=== PATIENT | female | born 1940 | race American Indian/Alaskan Native ===

== ENCOUNTER 2021-03-25 17:58 | Observation (INO) | payer MEDICARE, OTHER ==
[2021-03-25 18:58] LABS: Mean Corpuscular HGB Conc 34 % (30-34); Platelet Count 171 K/mm3 (140-440); Red Blood Count 1.48 M/mm3 (3.65-5.03)
[2021-03-25 19:02] LABS: Mean Corpuscular Volume 119 fl (79-97)
[2021-03-25 19:05] LABS: BUN/Creatinine Ratio 16; Blood Urea Nitrogen 11 mg/dL (7-17); Calcium 9.3 mg/dL (8.4-10.2); Hemolysis Index 29
[2021-03-25 19:07] LABS: Hematocrit 17.6 % (30.3-42.9); Hemoglobin 5.9 gm/dl (10.1-14.3)
[2021-03-25 19:40] LABS: Total Cells Counted 100
[2021-03-25 19:41] LABS: Anisocytosis 2+; Dimorphic RBC Yes; Hypochromasia Few; Macrocytosis 2+; Schistocytes 2+
[2021-03-26] MEDS ORDERED: SODIUM CHLORIDE 0.9% 500 ML 500 ML IV ONE ×2 (00:31→00:52)
--- NOTE | 2021-03-26 00:58 | Emergency Department Report ---
ED General Adult HPI - General Chief complaint: Medical Clearance Stated complaint: HGB 5.2 Time Seen by Provider: 03/26/21 00:16 Source: patient Mode of arrival: Ambulatory Limitations: No Limitations - History of Present Illness Initial comments: Patient is 80-year-old F Tongan female who had blood work done from her primary care physician was called to come to the emergency department for a low hemoglobin. Patient states she has had some shortness of breath and fatigue lately. States she has some mild left upper quadrant discomfort. As noted darker colored stools. Denies any chest pain cough cold congestion fevers or chills at this time. Severity scale (0 -10): 0 - Related Data Home Medications Medication Instructions Recorded Confirmed Last Taken Aspirin [Aspirin BABY CHEW TAB] 81 mg PO DAILY 11/20/13 11/27/13 11/19/13 Metoprolol [Lopressor TAB] 25 mg PO DAILY 11/20/13 11/27/13 11/27/13 07:00 Simvastatin 20 mg PO QDAY 11/20/13 11/27/13 11/26/13 22:00 Triamterene [Dyrenium] 12.5 mg PO DAILY 11/20/13 11/27/13 11/26/13 07:00 Previous Rx's Medication Instructions Recorded Last Taken Type Hydrocodone Bit/Acetaminophen 1 each PO Q6H PRN #20 tablet 11/27/13 Unknown Rx [Lortab 5-500 Tablet] Allergies Allergy/AdvReac Type Severity Reaction Status Date / Time atorvastatin calcium AdvReac Unknown Verified 11/20/13 17:02 [From Lipitor] codeine AdvReac Vomiting Verified 11/20/13 17:02 Penicillins AdvReac Unknown Verified 11/20/13 17:02 potassium AdvReac Rash Verified 11/20/13 17:02 ED Review of Systems ROS: Stated complaint: HGB 5.2 Other details as noted in HPI Comment: All other systems reviewed and negative ED Past Medical Hx - Past Medical History Hx Hypertension: Yes (2009) Hx GERD: Yes Hx Renal Disease: Yes (RENAL CYST) Hx Arthritis: Yes - Surgical History Hx Coronary Stent: Yes Hx Appendectomy: Yes - Social History Smoking Status: Never Smoker - Medications Home Medications: Home Medications Medication Instructions Recorded Confirmed Last Taken Type Aspirin [Aspirin BABY CHEW TAB] 81 mg PO DAILY 11/20/13 11/27/13 11/19/13 History Metoprolol [Lopressor TAB] 25 mg PO DAILY 11/20/13 11/27/13 11/27/13 07:00 History Simvastatin 20 mg PO QDAY 11/20/13 11/27/13 11/26/13 22:00 History Triamterene [Dyrenium] 12.5 mg PO DAILY 11/20/13 11/27/13 11/26/13 07:00 History Hydrocodone Bit/Acetaminophen 1 each PO Q6H PRN #20 tablet 11/27/13 Unknown Rx [Lortab 5-500 Tablet] ED Physical Exam - General Limitations: No Limitations General appearance: alert, in no apparent distress - Head Head exam: Present: atraumatic, normocephalic - Eye Eye exam: Present: normal appearance - ENT ENT exam: Present: mucous membranes moist - Neck Neck exam: Present: normal inspection - Respiratory Respiratory exam: Present: normal lung sounds bilaterally. Absent: respiratory distress, wheezes, rales, rhonchi - Cardiovascular Cardiovascular Exam: Present: regular rate, normal rhythm, normal heart sounds. Absent: systolic murmur, diastolic murmur, rubs, gallop - GI/Abdominal GI/Abdominal exam: Present: soft, tenderness (Epigastric and left upper quadrant), normal bowel sounds. Absent: distended, guarding - Extremities Exam Extremities exam: Present: normal inspection - Back Exam Back exam: Present: normal inspection - Neurological Exam Neurological exam: Present: alert, oriented X3 - Psychiatric Psychiatric exam: Present: normal affect, normal mood - Skin Skin exam: Present: warm, dry, intact, normal color. Absent: rash ED Course Vital Signs 03/25/21 03/26/21 18:00 00:27 Temperature 99.2 F Pulse Rate 88 75 Respiratory 18 21 Rate Blood Pressure 172/86 [Left] Blood Pressure 163/77 [Right] O2 Sat by Pulse 100 100 Oximetry ED Medical Decision Making - Lab Data Result diagrams: 03/25/21 18:23 03/25/21 18:23 - Medical Decision Making Hemoglobin under 7. Guaiac is negative. to transfuse and admit obs Critical care attestation.: If time is entered above; I have spent that time in minutes in the direct care of this critically ill patient, excluding procedure time. ED Disposition Clinical Impression: Symptomatic anemia Disposition: -09 OP ADMIT IP TO THIS HOSP Is pt being admited?: Yes Does the pt Need Aspirin: No Condition: Stable Time of Disposition: 01:12
[2021-03-26 01:04] LABS: INR 1.19 (0.87-1.13)
[2021-03-26 01:05] LABS: Partial Thromboplastin Time 28.4 Sec. (24.2-36.6)
[2021-03-26] MEDS ORDERED: DEXTROSE 50% IN WATER (25GM) 50 ML SYRINGE IV PRN (01:57)
[2021-03-26] MEDS ORDERED: ONDANSETRON 4 MG/2 ML INJ IV PRN (01:57)
[2021-03-26] MEDS ORDERED: MAGNESIUM HYDROXIDE (MOM) ORAL LIQD UDC PO PRN (01:57)
--- NOTE | 2021-03-26 02:08 | History and Physical Report ---
History of Present Illness Date of examination: 03/26/21 Date of admission: 03/26/21 01:14 Chief complaint: Abnormal Labs History of present illness: 80-year-old -[place] female who presents to the emergency room today for evaluation of low hemoglobin. She had gone to see a primary care physician and had some lab work done and was told to report to the emergency room for further evaluation. Patient states she has been having shortness of breath and generalized fatigue lately. She has also been having some mild left upper quadrant abdominal pain and also having some dark-colored stools. She denies any bright red blood per rectum. No melena, no hematemesis, no hematuria or dysuria. She denies any vaginal bleeding.Patient denies any weight loss. Upon evaluation in the emergency room, stool Hemoccult done in the ER was negative. Hemoglobin was 5.9 and hematocrit 17.6 Patient has been admitted for symptomatic anemia. She is scheduled for blood transfusion. Past History Past Medical History: arthritis, diabetes, GERD, hypertension Past Surgical History: appendectomy, PTCA Social history: denies: no significant social history Family history: no significant family history Medications and Allergies Allergies Allergy/AdvReac Type Severity Reaction Status Date / Time atorvastatin calcium AdvReac Unknown Verified 11/20/13 17:02 [From Lipitor] codeine AdvReac Vomiting Verified 11/20/13 17:02 Penicillins AdvReac Unknown Verified 11/20/13 17:02 potassium AdvReac Rash Verified 11/20/13 17:02 Home Medications Medication Instructions Recorded Confirmed Last Taken Type Aspirin [Aspirin BABY CHEW TAB] 81 mg PO DAILY 11/20/13 11/27/13 11/19/13 History Metoprolol [Lopressor TAB] 25 mg PO DAILY 11/20/13 11/27/13 11/27/13 07:00 History Simvastatin 20 mg PO QDAY 11/20/13 11/27/13 11/26/13 22:00 History Triamterene [Dyrenium] 12.5 mg PO DAILY 11/20/13 11/27/13 11/26/13 07:00 History Hydrocodone Bit/Acetaminophen 1 each PO Q6H PRN #20 tablet 11/27/13 Unknown Rx [Lortab 5-500 Tablet] Active Meds: Active Medications Acetaminophen (Acetaminophen 325 Mg Tab) 650 mg PO Q4H PRN PRN Reason: Pain MILD(1-3)/Fever >100.5/HARRIS Ondansetron HCl (Ondansetron 4 Mg/2 Ml Inj) 4 mg IV Q8H PRN PRN Reason: Nausea And Vomiting Sodium Chloride (Sodium Chloride 0.9% 10 Ml Flush Syringe) 10 ml IV BID ASHISH Review of Systems Constitutional: no weight loss, no fever, no chills Ears, nose, mouth and throat: no nasal congestion, no sore throat Cardiovascular: no chest pain, no palpitations Respiratory: no cough, no shortness of breath Gastrointestinal: no abdominal pain, no nausea, no vomiting, no diarrhea Genitourinary Female: no pelvic pain, no flank pain, no dysuria, no hematuria, no abnormal vaginal bleeding Musculoskeletal: no neck pain, no low back pain Integumentary: no rash, no pruritis Neurological: no headaches, no confusion Psychiatric: no anxiety, no depression Endocrine: no polyphagia, no polydipsia, no polyuria Exam - Constitutional Vitals: Temp Pulse Resp BP Pulse Ox 99.2 F 75 21 172/86 100 03/25/21 18:00 03/26/21 00:27 03/26/21 00:27 03/26/21 00:27 03/26/21 00:27 General appearance: Present: no acute distress, well-nourished - EENT Eyes: Present: PERRL, EOM intact. Absent: scleral icterus ENT: hearing intact, clear oral mucosa, dentition normal - Neck Neck: Present: supple, normal ROM - Respiratory Respiratory effort: normal Respiratory: bilateral: CTA - Cardiovascular Rhythm: regular Heart Sounds: Present: S1 & S2. Absent: gallop, systolic murmur, diastolic murmur, rub, click - Extremities Extremities: no ischemia, pulses intact, pulses symmetrical, No edema, normal temperature, normal color, Full ROM Peripheral Pulses: within normal limits - Abdominal General gastrointestinal: Present: soft, non-tender, non-distended, normal bowel sounds. Absent: mass - Integumentary Integumentary: Present: clear, warm, dry. Absent: rash - Musculoskeletal Musculoskeletal: strength equal bilaterally - Psychiatric Psychiatric: appropriate mood/affect, intact judgment & insight, memory intact, cooperative - Neurologic Neurologic: CNII-XII intact, moves all extremities Results - Labs CBC & Chem 7: 03/25/21 18:23 03/25/21 18:23 Labs: Abnormal lab results 03/25/21 03/25/21 03/25/21 Range/Units 18:23 18:23 18:23 WBC 3.6 L (4.5-11.0) K/mm3 RBC 1.48 L (3.65-5.03) M/mm3 Hgb 5.9 L* (10.1-14.3) gm/dl Hct 17.6 L* (30.3-42.9) % MCV 119 H (79-97) fl MCH 40 H (28-32) pg RDW 39.0 H (13.2-15.2) % Lymphocytes % (Manual) 44.0 H (13.4-35.0) % INR 1.19 H (0.87-1.13) Carbon Dioxide 20 L (22-30) mmol/L Crossmatch 03/26/21 Range/Units 01:00 WBC (4.5-11.0) K/mm3 RBC (3.65-5.03) M/mm3 Hgb (10.1-14.3) gm/dl Hct (30.3-42.9) % MCV (79-97) fl MCH (28-32) pg RDW (13.2-15.2) % Lymphocytes % (Manual) (13.4-35.0) % INR (0.87-1.13) Carbon Dioxide (22-30) mmol/L Crossmatch See Detail Assessment and Plan - Patient Problems (1) Symptomatic anemia Current Visit: Yes Status: Acute Plan to address problem: Etiology is unclear. Patient scheduled for blood transfusion. Will monitor CBC. (2) DVT prophylaxis Current Visit: Yes Status: Acute Plan to address problem: Patient placed on sequential compression device. (3) Full code status Current Visit: Yes Status: Acute Plan to address problem: Patient is full code.
[2021-03-26] MEDS ORDERED: INSULIN LISPRO 100 UNIT/ML SUB-Q SCH (07:30)
[2021-03-26] MEDS ORDERED: SODIUM CHLORIDE 0.9% 500 ML 500 ML IV SCH (09:30)
--- NOTE | 2021-03-26 13:17 | Event Note ---
Date: 03/26/21 Patient seen and examined, patient without any confusion, states that she does feel weak when she walks. Spoke with the nurse, patient only received 1 unit of blood, another unit of blood is pending. After the second unit, CBC will be carried out in the afternoon. Stool studies are pending for lower GI bleed even though the patient denies such. Agree with assessment and plan as outlined by admitting physician.
[2021-03-26] MEDS ORDERED: SODIUM CHLORIDE 0.9% 1000 ML 1,000 ML ONE (15:25)
[2021-03-26] MEDS: ACETAMINOPHEN 325 MG TAB PO PRN (17:12)
[2021-03-27 05:08] LABS: Hematocrit 20.9 % (30.3-42.9); Hemoglobin 7.1 gm/dl (10.1-14.3); Mean Corpuscular HGB Conc 34 % (30-34); Mean Corpuscular Volume 105 fl (79-97); Platelet Count 145 K/mm3 (140-440); Red Blood Count 1.99 M/mm3 (3.65-5.03)
[2021-03-27 05:14] LABS: Red Cell Distribution Width 39.8 % (13.2-15.2)
[2021-03-27 05:19] LABS: INR 1.16 (0.87-1.13)
[2021-03-27 05:25] LABS: Blood Urea Nitrogen 10 mg/dL (7-17); Calcium 8.8 mg/dL (8.4-10.2); Hemolysis Index 3
[2021-03-27 05:31] LABS: BUN/Creatinine Ratio 20
[2021-03-27 08:30] LABS: Total Cells Counted 100
[2021-03-27 08:32] LABS: Anisocytosis 3+
[2021-03-27 08:34] LABS: Platelet Estimate Consistent w Auto; Schistocytes 1+
--- NOTE | 2021-03-27 09:13 | Progress Note ---
Assessment and Plan Assessment and plan: 80-year-old -[place] female who presents with severe anemia Severe macrocytic anemia Etiology unknown Blood transfusion x2 Hemoglobin stabilized to 7.1 Hematology consulted Stool occult pending Iron studies, LDH, folate, B12 pending Hold aspirin Hypertension Metoprolol CODE STATUS: Full DVT prophylaxis: SCDs Disposition: Continue to monitor patient's hemoglobin, awaiting recommendations from hematology History Interval history: 03/27/2021: Patient doing well, talking on the phone with her daughter, updated daughter as to the patient's condition. Patient does not complain of any pain. Patient has not had a bowel movement at this time. No confusion. Hospitalist Physical - Physical exam Narrative exam: General appearance: no acute distress, well-nourished EENT: PERRL, EOM intact, hearing intact, clear oral mucosa, dentition normal Neck: Present: supple, normal ROM Respiratory: bilateral: CTA, negative: rales, rhonchi, wheezing Cardiovascular: Regular rate/rhythm, Normal S1 & S2. No gallop, rub Extremities: no ischemia, No edema, normal temperature, normal color, Full ROM Abdominal: soft, non-tender, non-distended, normal bowel sounds Integumentary: Present: clear, warm, dry Psychiatric: appropriate mood/affect, intact judgment & insight Neurologic: CNII-XII intact, moves all extremities - Constitutional Vitals: Temp Pulse Resp BP Pulse Ox 98.5 F 66 20 137/59 100 03/27/21 04:14 03/27/21 04:14 03/27/21 04:14 03/27/21 04:14 03/27/21 04:14 General appearance: Present: no acute distress, well-nourished Results - Labs CBC & Chem 7: 03/27/21 04:07 03/27/21 04:07 Labs: Laboratory Last Values WBC 2.6 K/mm3 (4.5-11.0) L 03/27/21 04:07 RBC 1.99 M/mm3 (3.65-5.03) L 03/27/21 04:07 Hgb 7.1 gm/dl (10.1-14.3) L 03/27/21 04:07 Hct 20.9 % (30.3-42.9) L 03/27/21 04:07 MCV 105 fl (79-97) H 03/27/21 04:07 MCH 36 pg (28-32) H 03/27/21 04:07 MCHC 34 % (30-34) 03/27/21 04:07 RDW 39.8 % (13.2-15.2) H 03/27/21 04:07 Plt Count 145 K/mm3 (140-440) 03/27/21 04:07 Add Manual Diff Complete 03/27/21 04:07 Total Counted 100 03/27/21 04:07 Seg Neuts % (Manual) 52.0 % (40.0-70.0) 03/27/21 04:07 Lymphocytes % (Manual) 48.0 % (13.4-35.0) H 03/27/21 04:07 Monocytes % (Manual) 3.0 % (0.0-7.3) 03/25/21 18:23 Eosinophils % (Manual) 1.0 % (0.0-4.3) 03/25/21 18:23 Nucleated RBC % Not Reportable 03/27/21 04:07 Seg Neutrophils # Man 1.4 K/mm3 (1.8-7.7) L 03/27/21 04:07 Band Neutrophils # 0.0 K/mm3 03/27/21 04:07 Lymphocytes # (Manual) 1.2 K/mm3 (1.2-5.4) 03/27/21 04:07 Abs React Lymphs (Man) 0.0 K/mm3 03/27/21 04:07 Monocytes # (Manual) 0.0 K/mm3 (0.0-0.8) 03/27/21 04:07 Eosinophils # (Manual) 0.0 K/mm3 (0.0-0.4) 03/27/21 04:07 Basophils # (Manual) 0.0 K/mm3 (0.0-0.1) 03/27/21 04:07 Metamyelocytes # 0.0 K/mm3 03/27/21 04:07 Myelocytes # 0.0 K/mm3 03/27/21 04:07 Promyelocytes # 0.0 K/mm3 03/27/21 04:07 Blast Cells # 0.0 K/mm3 03/27/21 04:07 WBC Morphology Not Reportable 03/27/21 04:07 Hypersegmented Neuts Not Reportable 03/27/21 04:07 Hyposegmented Neuts Not Reportable 03/27/21 04:07 Hypogranular Neuts Not Reportable 03/27/21 04:07 Smudge Cells Not Reportable 03/27/21 04:07 Toxic Granulation Not Reportable 03/27/21 04:07 Toxic Vacuolation Not Reportable 03/27/21 04:07 Dohle Bodies Not Reportable 03/27/21 04:07 Pelger-Huet Anomaly Not Reportable 03/27/21 04:07 Matthew Rods Not Reportable 03/27/21 04:07 Platelet Estimate Consistent w auto 03/27/21 04:07 Clumped Platelets Not Reportable 03/27/21 04:07 Plt Clumps, EDTA Not Reportable 03/27/21 04:07 Large Platelets Not Reportable 03/27/21 04:07 Giant Platelets Not Reportable 03/27/21 04:07 Platelet Satelliting Not Reportable 03/27/21 04:07 Plt Morphology Comment Not Reportable 03/27/21 04:07 RBC Morphology Not Reportable 03/27/21 04:07 Dimorphic RBCs Not Reportable 03/27/21 04:07 Polychromasia Not Reportable 03/27/21 04:07 Hypochromasia Not Reportable 03/27/21 04:07 Poikilocytosis Not Reportable 03/27/21 04:07 Anisocytosis 3+ 03/27/21 04:07 Microcytosis Not Reportable 03/27/21 04:07 Macrocytosis Not Reportable 03/27/21 04:07 Spherocytes Not Reportable 03/27/21 04:07 Pappenheimer Bodies Not Reportable 03/27/21 04:07 Sickle Cells Not Reportable 03/27/21 04:07 Target Cells Not Reportable 03/27/21 04:07 Tear Drop Cells Not Reportable 03/27/21 04:07 Ovalocytes Not Reportable 03/27/21 04:07 Helmet Cells Not Reportable 03/27/21 04:07 Marroquin-Ravensworth Bodies Not Reportable 03/27/21 04:07 [place] Rings Not Reportable 03/27/21 04:07 Joseph Cells Not Reportable 03/27/21 04:07 Bite Cells Not Reportable 03/27/21 04:07 Crenated Cell Not Reportable 03/27/21 04:07 Elliptocytes Not Reportable 03/27/21 04:07 Acanthocytes (Spur) Not Reportable 03/27/21 04:07 Rouleaux Not Reportable 03/27/21 04:07 Hemoglobin C Crystals Not Reportable 03/27/21 04:07 Schistocytes 1+ 03/27/21 04:07 Malaria parasites Not Reportable 03/27/21 04:07 You Bodies Not Reportable 03/27/21 04:07 Hem Pathologist Commnt No 03/27/21 04:07 PT 14.6 Sec. (12.2-14.9) 03/27/21 04:07 INR 1.16 (0.87-1.13) H 03/27/21 04:07 APTT 28.4 Sec. (24.2-36.6) 03/25/21 18:23 Sodium 140 mmol/L (137-145) 03/27/21 04:07 Potassium 3.8 mmol/L (3.6-5.0) 03/27/21 04:07 Chloride 107.2 mmol/L (98-107) H 03/27/21 04:07 Carbon Dioxide 22 mmol/L (22-30) 03/27/21 04:07 Anion Gap 15 mmol/L 03/27/21 04:07 BUN 10 mg/dL (7-17) 03/27/21 04:07 Creatinine 0.5 mg/dL (0.6-1.2) L 03/27/21 04:07 Estimated GFR > 60 ml/min 03/27/21 04:07 BUN/Creatinine Ratio 20 % 03/27/21 04:07 Glucose 79 mg/dL (65-100) 03/27/21 04:07 Calcium 8.8 mg/dL (8.4-10.2) 03/27/21 04:07 Blood Type O POSITIVE 03/25/21 18:23 Antibody Screen Negative 03/25/21 18:23 Crossmatch See Detail 03/26/21 01:00 Ferguson/IV: Voiding Method Toilet Active Medications - Current Medications Current Medications: Generic Name Dose Route Start Last Admin Trade Name Freq PRN Reason Stop Dose Admin Acetaminophen 650 mg 03/26/21 01:57 03/26/21 17:12 Acetaminophen 325 Mg Tab PO 650 mg Q4H PRN Administration Pain MILD(1-3)/Fever >100.5/HARRIS Magnesium Hydroxide 30 ml 03/26/21 01:57 Magnesium Hydroxide (Mom) Oral Liqd Udc PO Q4H PRN Constipation Ondansetron HCl 4 mg 03/26/21 01:57 Ondansetron 4 Mg/2 Ml Inj IV Q8H PRN Nausea And Vomiting Sodium Chloride 10 ml 03/26/21 10:00 03/26/21 22:22 Sodium Chloride 0.9% 10 Ml Flush Syringe IV 10 ml BID ASHISH Administration Sodium Chloride 10 ml 03/26/21 01:57 Sodium Chloride 0.9% 10 Ml Flush Syringe IV PRN PRN LINE FLUSH Nutrition/Malnutrition Assess - Dietary Evaluation Nutrition/Malnutrition Findings: Nutrition Notes Start: 03/26/21 11:00 Freq: Status: Active Protocol: Document 03/26/21 11:00 (Rec: 03/26/21 11:07 [email or web address]) Nutrition Notes 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 No Phillip score or wounds noted. Pt reports not eating well for 2 weeks. Pt did not eat breakfast due to not liking the food choices. Pt has no food prefrences. Burn Absent Trauma Absent GI Symptoms None Current % PO Negligible Minimum of two criteria Yes Energy Intake (severe) < or equal to 50% Estimated Energy Requirement > or equal to 5 days Interpretation of Weight Loss (severe) >5% in 1 month #1 Nutrition Diagnosis Malnutrition Etiology fatigue As Evidenced by Signs and Symptoms <50% of EER in >5 days, 12% wt loss in 2 weeks Is patient on ventilator? No Is Patient Ambulatory and/or Out of Bed No REE-([facility]-confined to bed) 0152.453 Calculation Used for Recommendations [facility] Additional Notes Protein: 96-120g (1.2-1.5g/kg) Fluid: 1 ml/kcal Nutrition Intervention Change Diet Order: Continue Add Supplement/Snack (indicate name/kcal Glucerna TID /protein ) Provides kCal: 660 Provides Protein (gm) 30 Goal #1 Meet at least 75% of protein and energy needs via PO and ONS intakes Anticipated Discharge Needs: Cardiac, Consistent CHO Follow-Up By: 03/29/21 Additional Comments FU for intakes and ONS tolerance
[2021-03-27 09:41] LABS: Iron 175 ug/dL (37-170); Total Iron Binding Capacity 178 mcg/dL (250-450)
--- NOTE | 2021-03-27 10:21 | Hem/Onc Consultation ---
History of Present Illness - History of Present Illness heme/onc prelim data review 80yo AA woman with recent fatigue, found ot have severe anemia- Hgb 6 sent to ER from primary care found to have pancytopenia and "borderline" Vit B12 defic, very high LDH since admission, received RBC transfusions PMH: CAD per notes, s/p PTCA DM per notes DATA REVIEWED BELOW Vit B12 150 LDH 4000 IMP: pancytopenia with evidence of hemolytic anemia Vit B12 defic could be the whole problem, but r/o heme malignancy REC: C/A/P CT RBC transfusions for severe anemia Vit B12 treatments, folic acid supplement labs to include homocysteine, Ronan anticipate outpt televisit hematology f/u Home Medications Medication Instructions Recorded Confirmed Last Taken Aspirin [Aspirin BABY CHEW TAB] 81 mg PO DAILY 11/20/13 11/27/13 11/19/13 Metoprolol [Lopressor TAB] 25 mg PO DAILY 11/20/13 11/27/13 11/27/13 07:00 Simvastatin 20 mg PO QDAY 11/20/13 11/27/13 11/26/13 22:00 Triamterene [Dyrenium] 12.5 mg PO DAILY 11/20/13 11/27/13 11/26/13 07:00 Previous Rx's Medication Instructions Recorded Last Taken Type Hydrocodone Bit/Acetaminophen 1 each PO Q6H PRN #20 tablet 11/27/13 Unknown Rx [Lortab 5-500 Tablet] Active Medications Acetaminophen (Acetaminophen 325 Mg Tab) 650 mg PO Q4H PRN PRN Reason: Pain MILD(1-3)/Fever >100.5/HARRIS Last Admin: 03/26/21 17:12 Dose: 650 mg Documented by: Magnesium Hydroxide (Magnesium Hydroxide (Mom) Oral Liqd Udc) 30 ml PO Q4H PRN PRN Reason: Constipation Metoprolol Tartrate (Metoprolol Tartrate 25 Mg Tab) 25 mg PO DAILY ASHISH Ondansetron HCl (Ondansetron 4 Mg/2 Ml Inj) 4 mg IV Q8H PRN PRN Reason: Nausea And Vomiting Sodium Chloride (Sodium Chloride 0.9% 10 Ml Flush Syringe) 10 ml IV BID ASHISH Last Admin: 03/26/21 22:22 Dose: 10 ml Documented by: Sodium Chloride (Sodium Chloride 0.9% 10 Ml Flush Syringe) 10 ml IV PRN PRN PRN Reason: LINE FLUSH Laboratory Last Values WBC 2.6 K/mm3 (4.5-11.0) L 03/27/21 04:07 Hgb 7.1 gm/dl (10.1-14.3) L 03/27/21 04:07 Hct 20.9 % (30.3-42.9) L 03/27/21 04:07 MCV 105 fl (79-97) H 03/27/21 04:07 Plt Count 145 K/mm3 (140-440) 03/27/21 04:07 Seg Neuts % (Manual) 52.0 % (40.0-70.0) 03/27/21 04:07 Lymphocytes % (Manual) 48.0 % (13.4-35.0) H 03/27/21 04:07 Schistocytes 1+ 03/27/21 04:07 PT 14.6 Sec. (12.2-14.9) 03/27/21 04:07 INR 1.16 (0.87-1.13) H 03/27/21 04:07 APTT 28.4 Sec. (24.2-36.6) 03/25/21 18:23 Creatinine 0.5 mg/dL (0.6-1.2) L 03/27/21 04:07 Vitamin B12 150.0 pg/mL (211-911) L 03/27/21 04:07 Folate 14.85 ng/mL (7.3-26.0) 03/27/21 04:07 Blood Type O POSITIVE 03/25/21 18:23 Antibody Screen Negative 03/25/21 18:23 Crossmatch See Detail 03/26/21 01:00 Abnormal Labs 03/25/21 03/25/21 03/25/21 18:23 18:23 18:23 WBC 3.6 L RBC 1.48 L Hgb 5.9 L* Hct 17.6 L* MCV 119 H MCH 40 H RDW 39.0 H Lymphocytes % (Manual) 44.0 H Seg Neutrophils # Man INR 1.19 H Chloride Carbon Dioxide 20 L Creatinine Iron TIBC Lactate Dehydrogenase Vitamin B12 Crossmatch 03/26/21 03/27/21 03/27/21 01:00 04:07 04:07 WBC 2.6 L RBC 1.99 L Hgb 7.1 L Hct 20.9 L MCV 105 H MCH 36 H RDW 39.8 H Lymphocytes % (Manual) 48.0 H Seg Neutrophils # Man 1.4 L INR 1.16 H Chloride Carbon Dioxide Creatinine Iron TIBC Lactate Dehydrogenase Vitamin B12 Crossmatch See Detail 03/27/21 03/27/21 03/27/21 04:07 04:07 04:07 WBC RBC Hgb Hct MCV MCH RDW Lymphocytes % (Manual) Seg Neutrophils # Man INR Chloride 107.2 H Carbon Dioxide Creatinine 0.5 L Iron 175 H TIBC 178 L Lactate Dehydrogenase 4617 H Vitamin B12 150.0 L Crossmatch Past History Past Medical History: arthritis, diabetes, GERD, hypertension Past Surgical History: appendectomy, PTCA Social history: denies: no significant social history Family history: no significant family history Medications and Allergies Allergies Allergy/AdvReac Type Severity Reaction Status Date / Time atorvastatin calcium AdvReac Unknown Verified 11/20/13 17:02 [From Lipitor] codeine AdvReac Vomiting Verified 11/20/13 17:02 Penicillins AdvReac Unknown Verified 11/20/13 17:02 potassium AdvReac Rash Verified 11/20/13 17:02 Home Medications Medication Instructions Recorded Confirmed Last Taken Type Aspirin [Aspirin BABY CHEW TAB] 81 mg PO DAILY 11/20/13 11/27/13 11/19/13 History Metoprolol [Lopressor TAB] 25 mg PO DAILY 11/20/13 11/27/13 11/27/13 07:00 History Simvastatin 20 mg PO QDAY 11/20/13 11/27/13 11/26/13 22:00 History Triamterene [Dyrenium] 12.5 mg PO DAILY 11/20/13 11/27/13 11/26/13 07:00 History Hydrocodone Bit/Acetaminophen 1 each PO Q6H PRN #20 tablet 11/27/13 Unknown Rx [Lortab 5-500 Tablet] Active Meds: Active Medications Acetaminophen (Acetaminophen 325 Mg Tab) 650 mg PO Q4H PRN PRN Reason: Pain MILD(1-3)/Fever >100.5/HARRIS Last Admin: 03/26/21 17:12 Dose: 650 mg Documented by: Magnesium Hydroxide (Magnesium Hydroxide (Mom) Oral Liqd Udc) 30 ml PO Q4H PRN PRN Reason: Constipation Metoprolol Tartrate (Metoprolol Tartrate 25 Mg Tab) 25 mg PO DAILY [facility] Ondansetron HCl (Ondansetron 4 Mg/2 Ml Inj) 4 mg IV Q8H PRN PRN Reason: Nausea And Vomiting Sodium Chloride (Sodium Chloride 0.9% 10 Ml Flush Syringe) 10 ml IV BID [facility] Last Admin: 03/26/21 22:22 Dose: 10 ml Documented by: Sodium Chloride (Sodium Chloride 0.9% 10 Ml Flush Syringe) 10 ml IV PRN PRN PRN Reason: LINE FLUSH Exam - Constitutional Vitals: Last Vital Signs Temp 98.5 F 03/27/21 04:14 Pulse 66 03/27/21 04:14 Resp 20 03/27/21 04:14 BP 137/59 03/27/21 04:14 Pulse Ox 100 03/27/21 04:14 Results - Labs lab Results: Laboratory Results - last 24 hr 03/26/21 03/27/21 03/27/21 01:00 04:07 04:07 WBC 2.6 L RBC 1.99 L Hgb 7.1 L Hct 20.9 L MCV 105 H MCH 36 H MCHC 34 RDW 39.8 H Plt Count 145 Add Manual Diff Complete Total Counted 100 Seg Neuts % (Manual) 52.0 Lymphocytes % (Manual) 48.0 H Nucleated RBC % Not Reportable Seg Neutrophils # Man 1.4 L Band Neutrophils # 0.0 Lymphocytes # (Manual) 1.2 Abs React Lymphs (Man) 0.0 Monocytes # (Manual) 0.0 Eosinophils # (Manual) 0.0 Basophils # (Manual) 0.0 Metamyelocytes # 0.0 Myelocytes # 0.0 Promyelocytes # 0.0 Blast Cells # 0.0 WBC Morphology Not Reportable Hypersegmented Neuts Not Reportable Hyposegmented Neuts Not Reportable Hypogranular Neuts Not Reportable Smudge Cells Not Reportable Toxic Granulation Not Reportable Toxic Vacuolation Not Reportable Dohle Bodies Not Reportable Pelger-Huet Anomaly Not Reportable Matthew Rods Not Reportable Platelet Estimate Consistent w auto Clumped Platelets Not Reportable Plt Clumps, EDTA Not Reportable Large Platelets Not Reportable Giant Platelets Not Reportable Platelet Satelliting Not Reportable Plt Morphology Comment Not Reportable RBC Morphology Not Reportable Dimorphic RBCs Not Reportable Polychromasia Not Reportable Hypochromasia Not Reportable Poikilocytosis Not Reportable Anisocytosis 3+ Microcytosis Not Reportable Macrocytosis Not Reportable Spherocytes Not Reportable Pappenheimer Bodies Not Reportable Sickle Cells Not Reportable Target Cells Not Reportable Tear Drop Cells Not Reportable Ovalocytes Not Reportable Helmet Cells Not Reportable Marroquin-Tri[place] Bodies Not Reportable [place] Rings Not Reportable Joseph Cells Not Reportable Bite Cells Not Reportable Crenated Cell Not Reportable Elliptocytes Not Reportable Acanthocytes (Spur) Not Reportable Rouleaux Not Reportable Hemoglobin C Crystals Not Reportable Schistocytes 1+ Malaria parasites Not Reportable You Bodies Not Reportable Hem Pathologist Commnt No PT 14.6 INR 1.16 H Sodium Potassium Chloride Carbon Dioxide Anion Gap BUN Creatinine Estimated GFR BUN/Creatinine Ratio Glucose Calcium Iron TIBC Lactate Dehydrogenase Vitamin B12 Folate Crossmatch See Detail 03/27/21 03/27/21 03/27/21 04:07 04:07 04:07 WBC RBC Hgb Hct MCV MCH MCHC RDW Plt Count Add Manual Diff Total Counted Seg Neuts % (Manual) Lymphocytes % (Manual) Nucleated RBC % Seg Neutrophils # Man Band Neutrophils # Lymphocytes # (Manual) Abs React Lymphs (Man) Monocytes # (Manual) Eosinophils # (Manual) Basophils # (Manual) Metamyelocytes # Myelocytes # Promyelocytes # Blast Cells # WBC Morphology Hypersegmented Neuts Hyposegmented Neuts Hypogranular Neuts Smudge Cells Toxic Granulation Toxic Vacuolation Dohle Bodies Pelger-Huet Anomaly Matthew Rods Platelet Estimate Clumped Platelets Plt Clumps, EDTA Large Platelets Giant Platelets Platelet Satelliting Plt Morphology Comment RBC Morphology Dimorphic RBCs Polychromasia Hypochromasia Poikilocytosis Anisocytosis Microcytosis Macrocytosis Spherocytes Pappenheimer Bodies Sickle Cells Target Cells Tear Drop Cells Ovalocytes Helmet Cells Marroquin-Tri[place] Bodies [place] Rings [place] Cells Bite Cells Crenated Cell Elliptocytes Acanthocytes (Spur) Rouleaux Hemoglobin C Crystals Schistocytes Malaria parasites You Bodies Hem Pathologist Commnt PT INR Sodium 140 Potassium 3.8 Chloride 107.2 H Carbon Dioxide 22 Anion Gap 15 BUN 10 Creatinine 0.5 L Estimated GFR > 60 BUN/Creatinine Ratio 20 Glucose 79 Calcium 8.8 Iron 175 H TIBC 178 L Lactate Dehydrogenase 4617 H Vitamin B12 150.0 L Folate Crossmatch 05/09/21 04:07 WBC RBC Hgb Hct MCV MCH MCHC RDW Plt Count Add Manual Diff Total Counted Seg Neuts % (Manual) Lymphocytes % (Manual) Nucleated RBC % Seg Neutrophils # Man Band Neutrophils # Lymphocytes # (Manual) Abs React Lymphs (Man) Monocytes # (Manual) Eosinophils # (Manual) Basophils # (Manual) Metamyelocytes # Myelocytes # Promyelocytes # Blast Cells # WBC Morphology Hypersegmented Neuts Hyposegmented Neuts Hypogranular Neuts Smudge Cells Toxic Granulation Toxic Vacuolation Dohle Bodies Pelger-Huet Anomaly Matthew Rods Platelet Estimate Clumped Platelets Plt Clumps, EDTA Large Platelets Giant Platelets Platelet Satelliting Plt Morphology Comment RBC Morphology Dimorphic RBCs Polychromasia Hypochromasia Poikilocytosis Anisocytosis Microcytosis Macrocytosis Spherocytes Pappenheimer Bodies Sickle Cells Target Cells Tear Drop Cells Ovalocytes Helmet Cells Marroquin-[place] Bodies [place] Rings [place] Cells Bite Cells Crenated Cell Elliptocytes Acanthocytes (Spur) Rouleaux Hemoglobin C Crystals Schistocytes Malaria parasites You Bodies Hem Pathologist Commnt PT INR Sodium Potassium Chloride Carbon Dioxide Anion Gap BUN Creatinine Estimated GFR BUN/Creatinine Ratio Glucose Calcium Iron TIBC Lactate Dehydrogenase Vitamin B12 Folate 14.85 Crossmatch
[2021-03-27] MEDS ORDERED: ACETAMINOPHEN 325 MG TAB PO PRN (10:39)
[2021-03-27] MEDS ORDERED: SODIUM CHLORIDE 0.9% 500 ML 500 ML IV ONE ×3 (11:00→16:00)
[2021-03-27] MEDS: FOLIC ACID 1 MG TAB PO SCH (16:02)
[2021-03-27] MEDS: METOPROLOL TARTRATE 25 MG TAB PO SCH (16:03)
[2021-03-27] MEDS: diphenhydrAMINE 50 MG/ML VIAL IV PRN ×2 (16:05→20:02)
[2021-03-27] MEDS: CYANOCOBALAMIN (VIT B-12) 1000 MCG/1 ML INJ SUB-Q SCH (16:21)
[2021-03-27 18:27] LABS: Hemoglobin 7.8 gm/dl (10.1-14.3); Mean Corpuscular HGB Conc 34 % (30-34); Mean Corpuscular Volume 107 fl (79-97); Platelet Count 154 K/mm3 (140-440); Red Blood Count 2.16 M/mm3 (3.65-5.03)
--- NOTE | 2021-03-27 18:31 | Cat Scan Report ---
CT CHEST, ABDOMEN AND PELVIS WITH CONTRAST HISTORY: Pancytopenia COMPARISON: None TECHNIQUE: Routine chest, abdominal and pelvic CT exam performed following intravenous contrast admi nistration.. All CT scans at this location are performed using CT dose reduction for ALARA by means o f automated exposure control. FINDINGS: CT CHEST: Lungs: There is a 1.7 cm pleural-based nodule in the mid right lung base along the right hemidiaphrag m. The lungs are otherwise clear. Trachea and Bronchi: No significant abnormality. Heart and Pericardium: Moderately extensive coronary artherosclerotic calcifications Vasculature: Atherosclerotic but not aneurysmal thoracic aorta. Lymphatics: No lymphadenopathy. CT ABDOMEN: Liver: There are multiple simple cysts in the liver without acute abnormality. Biliary: Gallbladder is surgically absent. Spleen: No significant abnormality. Unenlarged. Pancreas: No significant abnormality. Adrenals: No significant abnormality. Kidneys: No acute findings. Multiple simple cysts in the left kidney. Lymphatics: No lymphadenopathy. Vasculature: No significant abnormality. Bowel/Peritoneum: No acute findings. Umbilical hernia containing nondistended loops of small bowel. N o obstruction or free air. Sigmoid diverticulosis without diverticulitis. CT PELVIC: : No significant abnormality. Lymphatics: No lymphadenopathy. Osseous Structures: No aggressive appearing osseous lesions. Additional Findings: None IMPRESSION: 1. There is a 1.7 cm pleural-based nodule in the right lower lobe. This is well marginated and appear s likely benign. However, it would be difficult to rule out underlying malignancy. Comparison with an y available prior imaging is recommended to evaluate for stability. 2. No additional concerning abnormality in the abdomen and pelvis. 3. Multiple incidental findings as detailed above. Signer Name: Shawn Arnold MD Signed: 03/27/2021 6:26 PM Workstation Name: [id number]
[2021-03-27 18:32] LABS: Red Cell Distribution Width 39.5 % (13.2-15.2)
[2021-03-27] MEDS: ACETAMINOPHEN 325 MG TAB PO PRN (20:01)
[2021-03-27] MEDS: amLODIPine 5 MG TAB PO SCH (20:02)
[2021-03-28 05:29] LABS: Hematocrit 24.3 % (30.3-42.9); Hemoglobin 8.1 gm/dl (10.1-14.3); Mean Corpuscular HGB Conc 33 % (30-34); Mean Corpuscular Volume 104 fl (79-97); Platelet Count 144 K/mm3 (140-440); Red Blood Count 2.35 M/mm3 (3.65-5.03)
[2021-03-28 05:30] LABS: Red Cell Distribution Width 35.7 % (13.2-15.2)
[2021-03-28 05:46] LABS: INR 1.06 (0.87-1.13); Partial Thromboplastin Time 30.8 Sec. (24.2-36.6)
[2021-03-28 05:47] LABS: Blood Urea Nitrogen 11 mg/dL (7-17); Calcium 8.5 mg/dL (8.4-10.2); Hemolysis Index 0
[2021-03-28 05:49] LABS: BUN/Creatinine Ratio 18
[2021-03-28] MEDS ORDERED: POLYETHYLENE GLYCOL 3350 17 GM POWDER PO SCH (10:00)
[2021-03-28] MEDS: METOPROLOL TARTRATE 25 MG TAB PO SCH (11:12)
[2021-03-28] MEDS: amLODIPine 5 MG TAB PO SCH (11:12)
[2021-03-28] MEDS: FOLIC ACID 1 MG TAB PO SCH (11:14)
[2021-03-28] MEDS: CYANOCOBALAMIN (VIT B-12) 1000 MCG/1 ML INJ SUB-Q SCH (11:14)
[2021-03-28 11:23] VITALS: BP 136/68
--- NOTE | 2021-03-28 12:19 | Discharge Summary ---
Providers - Providers Date of Admission: 03/26/21 01:14 Date of discharge: 03/28/21 Attending physician: OZ JAY MD 03/27/21 09:10 Consult to Physician [CONS] Routine Comment: Consulting Provider: ANDREW ESTRADA Physician Instructions: Reason For Exam: severe anemia Hospitalization Reason for admission: Severe anemia Condition: Stable Hospital course: Assessment and plan: 80-year-old -[place] female who presents with severe anemia Severe macrocytic anemia Blood transfusion x3 Hemoglobin stabilized to 7.1 Iron studies, LDH, folate Hematology consulted, labs noted, there are few labs that are pending, patient to follow-up with telemedicine to get the final results. Severe B12 deficiency Continue B12 supplementation Hypertension Metoprolol History Interval history: 03/27/2021: Patient doing well, talking on the phone with her daughter, updated daughter as to the patient's condition. Patient does not complain of any pain. Patient has not had a bowel movement at this time. No confusion. 03/28/2021: Patient doing well, received 3 units of blood total, states that she feels much better. Spoke with hematology, patient with B12 deficiency, continue supplementation, patient will follow up with hematology via telemedicine and fo llow-up with her primary care physician. Spoke with family, family is in agreement with plan. Disposition: TO HOME OR SELFCARE Final Discharge Diagnosis (Prints w/discharge instructions): Macrocytic anemia. Hypertension. B12 deficiency Core Measure Documentation - Palliative Care Palliative Care/ Comfort Measures: Not Applicable - Core Measures Any of the following diagnoses?: none Exam - Physical Exam Narrative exam: General appearance: no acute distress, well-nourished EENT: PERRL, EOM intact, hearing intact, clear oral mucosa, dentition normal Neck: Present: supple, normal ROM Respiratory: bilateral: CTA, negative: rales, rhonchi, wheezing Cardiovascular: Regular rate/rhythm, Normal S1 & S2. No gallop, rub Extremities: no ischemia, No edema, normal temperature, normal color, Full ROM Abdominal: soft, non-tender, non-distended, normal bowel sounds Integumentary: Present: clear, warm, dry Psychiatric: appropriate mood/affect, intact judgment & insight Neurologic: CNII-XII intact, moves all extremities - Constitutional Vitals: Temp Pulse Resp BP Pulse Ox 98.7 F 67 16 136/68 98 03/28/21 04:39 03/28/21 11:12 03/28/21 04:39 03/28/21 11:12 03/28/21 11:09 Plan Activity: no restrictions Diet: low salt Follow up with: DR RACHEAL [Other] - 7 Days ANDREW ESTRADA MD [Staff Physician] - 7 Days (Please follow up with the vermin exterminator by telemedicine) Prescriptions: Cyanocobalamin (Vitamin B-12) [B-12] 1,000 mcg PO DAILY #30 tablet
--- NOTE | 2021-03-29 08:13 | Electrocardiograph Report ---
[facility] Test Date: 2021-03-25 Test Time: 18:19:05 Pat Name: MESSI BARRAGAN Department: Room: A389 1 Gender: F Lead Business Analyst: : 1940 Requested By: OZ JAY Order Number: [id number] Reading MD: Jesus Hillman Measurements Intervals [place] Rate: 83 P: 58 [place]: 159 QRS: 12 QRSD: 72 T: 56 QT: 373 QTc: 440 Interpretive Statements Sinus rhythm No previous ECG available for comparison Electronically Signed On 03-29-2021 8:13:06 EDT by Jesus Hillman
[2021-04-01 05:24] LABS: Albumin 3.6 g/dL (3.8-4.8); Gamma Globulin 0.8 g/dL (0.8-1.7)
[2021-04-04 09:06] LABS: Hemoglobin A2 Prime SEE SCANNED RESULT; Hemoglobin Barts SEE SCANNED RESULT; Hemoglobin E SEE SCANNED RESULT; Hemoglobin G SEE SCANNED RESULT; Hemoglobin Lepore SEE SCANNED RESULT; Hemoglobin O-Arab SEE SCANNED RESULT; IEF Confirm SEE SCANNED RESULT; Interpretation SEE SCANNED RESULT; Sickle Solubility Test SEE SCANNED RESULT
== END 2021-03-28 15:30 | disposition home or self-care (01) ==
LOC: ED 17:58 → 3A 03-26 01:14
PROVIDERS: ADMIT Internal Medicine Geriatric Medicine; ATTEND Family Medicine
DX: D53.9 Nutritional anemia, unspecified (principal); I10 Essential (primary) hypertension; E11.9 Type 2 diabetes mellitus without complications; K21.9 Gastro-esophageal reflux disease without esophagitis; M19.90 Unspecified osteoarthritis, unspecified site; N28.9 Disorder of kidney and ureter, unspecified; E53.8 Deficiency of other specified B group vitamins; R07.89 Other chest pain; Z90.49 Acquired absence of other specified parts of digestive tract; Z79.899 Other long term (current) drug therapy; Z98.890 Other specified postprocedural states; Z79.82 Long term (current) use of aspirin; Z95.1 Presence of aortocoronary bypass graft
CPT/HCPCS: 36415; 36430; 71260; 74177; 80048; 82607; 82747; 83516; 83550; 83615; 84165; 85025; 85027; 85610; 85730; 86850; 86880; 86900; 86901; 86920; 93005; 96372; 96374; 99284; G0378; J1200; J3420; J7030; J7040; P9016; Q9967; 85007